=== PATIENT | male | born 1985 | race Caucasian/White ===

== ENCOUNTER 2021-07-30 15:18 | Inpatient (IN) | payer OTHER ==
[~2021-07-30] VITALS: Ht 188 cm; Wt 162.2 kg
[2021-07-30 17:24] LABS: BASOPHIL 0.1 % (0-2); EOSINOPHIL 0 % (0-5); HCT 46.3 % (42.0-52.0); HGB 15.7 g/dl (13.2-18.0); LYMPHOCYTE 7.5 % (15-48); MCH 28.8 pg (25.0-31.0); MCHC 33.9 g/dL (32.0-36.0); MPV 10.2 fL (6.0-9.5); NEUTROPHIL 86.7 % (41-80); NRBC 0; PLT 261 K/uL (150-400); RBC 5.45 M/uL (4.70-6.00); RDW 12.8 % (11.5-14.0); WBC 21.3 K/uL (4.0-10.5)
[2021-07-30 17:32] LABS: ALBUMIN 3.3 g/dL (3.4-5.0); BILIRUBIN - TOTAL 0.7 mg/dL (0.2-1.0); BUN/CREAT RATIO (CALC) 9.6 RATIO; CREATININE 1.14 mg/dL (0.67-1.17); GLOBULIN (CALCULATION) 4.8 g/dL; TOTAL PROTEIN 8.1 g/dL (6.4-8.2)
[2021-07-30 17:36] LABS: LACTIC ACID 1.4 mmol/L (0.4-1.9)
[2021-07-30 18:31] LABS: LDH 405 U/L (85-227)
[2021-07-30 21:11] LABS: BILIRUBIN 2+ mg/dL (NEGATIVE); BLOOD NEGATIVE Ery/uL (NEGATIVE); CLARITY CLEAR (CLEAR); COLOR YELLOW (YELLOW); GLUCOSE (U) NORMAL (NORMAL); LEUKOCYTES NEGATIVE Leu/uL (NEGATIVE); NITRITE NEGATIVE (NEGATIVE); PROTEIN 2+ mg/dL (NEGATIVE); UROBILINOGEN 0.2 mg/dL (0.2-1.0)
[2021-07-30 21:18] LABS: BACTERIA 1+; RENAL EPITHELIAL CELLS RARE; SQUAMOUS EPITHELIAL CELLS RARE
[2021-07-30] MEDS ORDERED: PRINIVIL20 MG PO (22:12)
[2021-07-30] MEDS ORDERED: LOPRESSOR50 MG PO (22:13)
[2021-07-30] MEDS ORDERED: PAXIL40 MG PO (22:13)
[2021-07-30] MEDS ORDERED: ZYRTEC10 M3 PO (22:14)
[2021-07-31 06:23] LABS: MAGNESIUM 2.2 mg/dL (1.8-2.4)
[2021-07-31 07:15] LABS: BASOPHIL 0.1 % (0-2); EOSINOPHIL 0 % (0-5); HCT 41.8 % (42.0-52.0); HGB 13.9 g/dl (13.2-18.0); LYMPHOCYTE 7.9 % (15-48); MCHC 33.3 g/dL (32.0-36.0); MCV 87.3 fL (78.0-100.0); MONOCYTE 3.9 % (0-12); MPV 10.5 fL (6.0-9.5); NEUTROPHIL 87.3 % (41-80); NRBC 0; PLT 261 K/uL (150-400); RBC 4.79 M/uL (4.70-6.00); RDW 13.1 % (11.5-14.0)
[2021-07-31 07:41] LABS: BUN 16 mg/dL (7-18); BUN/CREAT RATIO (CALC) 15.5 RATIO; C-REACTIVE PROTEIN >18.00 mg/dL (<=0.90); CHLORIDE 101 mmol/L (98-107); CO2 (BICARBONATE) 28 mmol/L (21-32); CREATININE 1.03 mg/dL (0.67-1.17); GLUCOSE 144 mg/dL (74-106); POTASSIUM 4.8 mmol/L (3.5-5.1)
[2021-08-01 06:24] LABS: BASOPHIL 0.1 % (0-2); EOSINOPHIL 0 % (0-5); HCT 42.2 % (42.0-52.0); HGB 13.8 g/dl (13.2-18.0); LYMPHOCYTE 9.5 % (15-48); MCH 28.9 pg (25.0-31.0); MCHC 32.7 g/dL (32.0-36.0); MCV 88.5 fL (78.0-100.0); MONOCYTE 5.7 % (0-12); MPV 10.3 fL (6.0-9.5); NEUTROPHIL 83.9 % (41-80); NRBC 0; PLT 306 K/uL (150-400); RBC 4.77 M/uL (4.70-6.00); RDW 13.1 % (11.5-14.0); WBC 17.3 K/uL (4.0-10.5)
[2021-08-01 06:52] LABS: ALBUMIN 2.6 g/dL (3.4-5.0); BILIRUBIN - TOTAL 0.3 mg/dL (0.2-1.0); BUN/CREAT RATIO (CALC) 20.5 RATIO; C-REACTIVE PROTEIN 8.6 mg/dL (<=0.90); CREATININE 0.83 mg/dL (0.67-1.17); GLOBULIN (CALCULATION) 4.2 g/dL; POTASSIUM 3.8 mmol/L (3.5-5.1); TOTAL PROTEIN 6.8 g/dL (6.4-8.2)
[2021-08-02 06:28] LABS: ALBUMIN 2.7 g/dL (3.4-5.0); BILIRUBIN - TOTAL 0.3 mg/dL (0.2-1.0); BUN/CREAT RATIO (CALC) 18.8 RATIO; C-REACTIVE PROTEIN 3.7 mg/dL (<=0.90); CREATININE 0.85 mg/dL (0.67-1.17); GLOBULIN (CALCULATION) 4.1 g/dL; POTASSIUM 4.6 mmol/L (3.5-5.1); TOTAL PROTEIN 6.8 g/dL (6.4-8.2)
[2021-08-03] MEDS ORDERED: DEXAMETHASONE 2M2 MG PO (12:11)
[2021-08-03] MEDS ORDERED: DULERA 200 MCG8.8 GM INH (12:11)
[2021-08-03] MEDS ORDERED: PROVENTIL HFA6.7 GM INH (12:11)
== END 2021-08-03 15:05 | disposition home or self-care (01) | DRG 871 ==
LOC: FER 15:18 → FMS 20:45
PROVIDERS: Nurse Practitioner; Nurse Practitioner Family; ADMIT Internal Medicine
PROC: 8E0ZXY6 Isolation (ICD-10-PCS; principal; 2021-07-30)
PROC: XW033E5 Introduction of Remdesivir Anti-infective into Peripheral Vein, Percutaneous Approach, New Technology Group 5 (ICD-10-PCS; 2021-07-30)
PROC: XW0DXM6 Introduction of Baricitinib into Mouth and Pharynx, External Approach, New Technology Group 6 (ICD-10-PCS; 2021-07-30)
DX: A41.89 Other specified sepsis (principal); U07.1 COVID-19; J12.82 Pneumonia due to coronavirus disease 2019; J96.01 Acute respiratory failure with hypoxia; Z68.42 Body mass index [BMI] 45.0-49.9, adult; R65.20 Severe sepsis without septic shock; E88.09 Other disorders of plasma-protein metabolism, not elsewhere classified; E66.9 Obesity, unspecified; I10 Essential (primary) hypertension; Z90.89 Acquired absence of other organs; Z88.5 Allergy status to narcotic agent
CPT/HCPCS: 36415; 36600; 71045; 71275; 80048; 80053; 81001; 82728; 82803; 83605; 83615; 83735; 84100; 84145; 84484; 85025; 85379; 86140; 87040; 93005; 94010; 94640; 94664; 94667; 94668; C9399; J1100; J1650; J1885; J2405; J7030; J7050; J8540; Q9967; U0002

== ENCOUNTER 2021-08-11 15:09 | Emergency (ER) | payer OTHER ==
[~2021-08-11] VITALS: Ht 188 cm; Wt 167.8 kg
[~2021-08-11 15:09] MED LIST: DEXAMETHASONE 2M2 MG PO; DULERA 200 MCG8.8 GM INH; LOPRESSOR50 MG PO; PAXIL40 MG PO; PRINIVIL20 MG PO; PROVENTIL HFA6.7 GM INH; ZYRTEC10 M3 PO
[2021-08-11 15:44] LABS: BASOPHIL 0.3 % (0-2); EOSINOPHIL 0.3 % (0-5); HCT 45.3 % (42.0-52.0); HGB 14.9 g/dl (13.2-18.0); LYMPHOCYTE 4.7 % (15-48); MCH 28.5 pg (25.0-31.0); MCHC 32.9 g/dL (32.0-36.0); MCV 86.6 fL (78.0-100.0); MONOCYTE 8.2 % (0-12); MPV 9.7 fL (6.0-9.5); NEUTROPHIL 85.2 % (41-80); NRBC 0; PLT 540 K/uL (150-400); RBC 5.23 M/uL (4.70-6.00); RDW 13.3 % (11.5-14.0)
[2021-08-11 15:45] LABS: INR 1.3 (0.9-1.2); PROTHROMBIN TIME 15.5 SECONDS (11.8-13.4); PTT 29.2 SECONDS (24.4-34.7)
[2021-08-11 15:47] LABS: D-DIMER 2.92 ug/mLFEU (0.00-0.41)
[2021-08-11 15:48] LABS: WBC 35.5 K/uL (4.0-10.5)
[2021-08-11 16:12] LABS: ALBUMIN 2.2 g/dL (3.4-5.0); BILIRUBIN - TOTAL 2.1 mg/dL (0.2-1.0); BUN/CREAT RATIO (CALC) 17.2 RATIO; CREATININE 0.93 mg/dL (0.67-1.17); GLOBULIN (CALCULATION) 5.4 g/dL; POTASSIUM 4.2 mmol/L (3.5-5.1); TOTAL PROTEIN 7.6 g/dL (6.4-8.2)
[2021-08-11 16:14] LABS: PRO-BNP 1105 pg/mL (<125)
[2021-08-11 17:54] LABS: BILIRUBIN 1+ mg/dL (NEGATIVE); BLOOD NEGATIVE Ery/uL (NEGATIVE); CLARITY CLEAR (CLEAR); COLOR YELLOW (YELLOW); GLUCOSE (U) NORMAL (NORMAL); LEUKOCYTES NEGATIVE Leu/uL (NEGATIVE); NITRITE NEGATIVE (NEGATIVE); PROTEIN NEGATIVE (NEGATIVE); pH 5.5 (5.0-9.0)
== END 2021-08-11 21:02 | disposition other institution (70) ==
LOC: FER 15:09
PROVIDERS: Emergency Medicine
DX: U07.1 COVID-19 (principal); J12.82 Pneumonia due to coronavirus disease 2019; J96.01 Acute respiratory failure with hypoxia; J81.1 Chronic pulmonary edema; I10 Essential (primary) hypertension; Z88.5 Allergy status to narcotic agent; Z79.899 Other long term (current) drug therapy
CPT/HCPCS: 36415; 36600; 71045; 71275; 80053; 81003; 82803; 83880; 84145; 84484; 85025; 85379; 85610; 85730; 87040; 87088; 93005; 94762; J1100; J1644; J1885; J2543; J3370; J7030; J7050; Q9967